=== PATIENT | male | born 1950 | race Caucasian/White ===

== ENCOUNTER 2022-08-07 09:31 | Inpatient (IN) | payer MEDICARE ==
[2022-08-07] MEDS ORDERED: FLU VACC QS2022-23(65YR UP)/PF 240 MCG/0.7 ML SYRINGE IM ONE (10:15)
[2022-08-07] MEDS ORDERED: Nicotine 14 MG PATCH TD PRN (12:23)
[2022-08-07] MEDS ORDERED: Acetaminophen 650 MG Suppository PR PRN (12:23)
[2022-08-07] MEDS ORDERED: Ondansetron ODT 4 MG TAB PO PRN (12:23)
[2022-08-07] MEDS ORDERED: Ondansetron PF 4 MG/2 ML Vial IVP PRN (12:23)
[2022-08-07] MEDS ORDERED: Acetaminophen 325 MG TAB PO PRN (12:23)
[2022-08-07] MEDS ORDERED: hydrALAZINE 20 MG/ML VIAL SLOW IVP PRN (12:25)
[2022-08-07] MEDS ORDERED: Morphine 2 MG/ML VIAL SLOW IVP PRN (12:33)
[2022-08-07] MEDS: Dextrose 5 %-0.45 % NaCl 1,000 ML IV SCH ×2 (12:48→20:05)
[2022-08-07] MEDS: Famotidine/PF 20 mg/2ml Vial SLOW IVP SCH (20:05)
[2022-08-08] MEDS: Dextrose 5 %-0.45 % NaCl 1,000 ML IV SCH ×2 (04:21→14:08)
[2022-08-08 05:03] LABS: #Basophils 0.1 10x3/uL (0.0-0.2); #Eosinphils 0.4 10x3/uL (0.0-0.5); #Monocytes 0.7 10x3/uL (0.0-1.1); #Neutrophils 4.9 10x3/uL (1.5-8.4); %Basophils 0.7 % (0.0-2.0); %Eosinophils 4.8 % (0.0-6.0); %Lymphocytes 20.4 % (18.0-47.0); %Neutrophils 64.8 % (40.0-75.0); Hemoglobin 14.2 g/dL (13.5-17.5); Mean Corpuscular HGB CONC 33.5 g/dL (32.0-36.0); Mean Corpuscular Hemoglobin 32.1 pg (27.0-33.0); Mean Corpuscular Volume 95.7 fl (81.2-95.1); Mean Platelet Volume 10.8 fl (7.4-10.4); Platelet Count 151 10x3/uL (150-450); RBC Distribution Width 12.6 % (11.5-14.5); Red Blood Cell (RBC) Count 4.43 10x6/uL (4.32-5.72); White Blood Cell (WBC) Count 7.6 10x3/uL (3.5-10.5)
[2022-08-08 05:15] LABS: SARS-CoV-2 NAA Rapid Test Not Detected (NotDetected)
[2022-08-08 05:17] LABS: Anion Gap 12 mmol/L (10-20); BUN (Urea Nitrogen) 9 mg/dL (8.4-25.7); Calc. Creatinine Clearance 0 mL/min (70-130); Calcium 8.8 mg/dL (7.8-10.44); Carbon Dioxide 24 mmol/L (23-31); Chloride 103 mmol/L (98-107); Estimated GFR 92; Glucose 125 mg/dL (83-110); Potassium 3.8 mmol/L (3.5-5.1); Sodium 135 mmol/L (136-145)
[2022-08-08] MEDS: Famotidine/PF 20 mg/2ml Vial SLOW IVP SCH (08:11)
[2022-08-08 13:27] VITALS: TEMP 97.7
[2022-08-08 16:33] VITALS: BP 140/85
== END 2022-08-08 17:34 | disposition home or self-care (01) | DRG 390 ==
LOC: CSHTELE 09:31
PROVIDERS: ADMIT Internal Medicine; ATTEND Internal Medicine
DX: K56.609 Unspecified intestinal obstruction, unspecified as to partial versus complete obstruction (principal); I10 Essential (primary) hypertension; E78.5 Hyperlipidemia, unspecified; M10.9 Gout, unspecified; M06.9 Rheumatoid arthritis, unspecified; F17.210 Nicotine dependence, cigarettes, uncomplicated; K57.30 Diverticulosis of large intestine without perforation or abscess without bleeding; Z98.890 Other specified postprocedural states; Z20.822 Contact with and (suspected) exposure to COVID-19; Z79.899 Other long term (current) drug therapy; Z90.49 Acquired absence of other specified parts of digestive tract; Z71.6 Tobacco abuse counseling
CPT/HCPCS: 36415; 74250; 80048; 85025; 94760; J2272; J7042; S0028; U0002